=== PATIENT | male | born 1930 | race Caucasian/White ===

== ENCOUNTER 2016-11-30 21:25 | Inpatient (IN) | payer MEDICARE, OTHER ==
[~2016-11-30] VITALS: Ht 177.8 cm; Wt 95.3 kg
[~2016-11-30 21:25] MED LIST: ACETAMINOPHEN325 MG PO; ANUSOL-HC 2.5%30 GM TOPICAL; ASCORBIC ACID500 MG PO; ASPIRIN325 MG PO; CALCIUM 600+D T1 TA1 PO; COMBIVENT INH14.7 GM INH; COMBIVENT RESPIM4 GM INH; EC-NAPROSYN500 MG PO; FERROUS SULFAT325 MG PO; FLOVENT HFA 22012 GM INH; GLIMEPIRIDE1 MG PO; GLUCOTROL ER2.5 MG PO; HYDROCODONE-APA1 TAB PO; KEFLEX500 MG PO; KLOR-CON 1010 MEQ PO; LEVAQUIN500 MG PO; LEVAQUIN750 MG PO; LEVOTHROID100 MCG PO; LEVOXYL50 MCG PO; LIPITOR20 MG PO; NEURONTIN 300300 MG PO; NORCO 10/325 TA1 TA1 PO; NORVASC5 MG PO; OYSCO 500+D TAB1 TAB PO; PENTOXIL400 MG PO; PLAVIX75 MG PO; PREDNISONE10 MG PO; PREVACID30 MG PO; PROTONIX40 MG PO; PROVENTIL/2.5 MG/3 M INH; PYRIDOXINE HCL100 MG PO; SINGULAIR10 MG PO; STERAPRED DS 1210 MG PO; TYLENOL W/CODEI1 TAB PO; ULTRAM50 MG PO; VITAMIN B-121000 MC3 PO
[2016-11-30 22:04] LABS: BASOPHILS 0.1 % (0-2); EOSINOPHILS 0.5 % (0-7); HEMATOCRIT 47.6 % (42.0-54.0); HEMOGLOBIN 15.5 g/dL (13.5-17.5); IMMATURE GRANULOCYTES 0.1 % (0-5); LYMPHOCYTES 12.1 % (15-50); MCH 31.3 pg (26.0-34.0); MCHC 32.6 g/dL (31.0-37.0); MEAN PLATELET VOLUME 11.1 fL (7.4-10.4); MONOCYTES 8.4 % (2-11); NEUTROPHILS 78.8 % (40-80); PLATELET COUNT 127 10x3/uL (130-400); RBC 4.96 10x6/uL (4.20-6.10); RDW 13.9 % (11.5-14.5); WBC 8.2 10x3/uL (4.8-10.8)
[2016-11-30 22:25] LABS: ANION GAP 9.7 mmol/L (8-16); BILIRUBIN - TOTAL 1.8 mg/dL (0.2-1.3); CALCIUM 8.9 mg/dL (8.5-10.1); CARBON DIOXIDE 27.8 mmol/L (21.0-32.0); POTASSIUM - SERUM 4.5 mmol/L (3.5-5.1); PROTEIN - SERUM 7.7 g/dL (6.4-8.2)
[2016-12-01 00:16] LABS: APPEARANCE CLEAR (CLEAR); BILIRUBIN NEGATIVE (NEGATIVE); COLOR DK YELLOW (YELLOW); GLUCOSE NEGATIVE (NEGATIVE); KETONE NEGATIVE (NEGATIVE); LEUKOCYTE ESTERASE TRACE (NEGATIVE); NITRITE NEGATIVE (NEGATIVE); PROTEIN TRACE mg/dL (NEGATIVE); UROBILINOGEN NORMAL (NORMAL)
[2016-12-01 00:17] LABS: BACTERIA MODERATE /hpf (NONE SEEN); EPITHELIAL CELLS 0-5 /hpf (0-5); RED CELLS - URINE 0-5 /hpf (0-5); WHITE CELLS - URINE 0-5 /hpf (0-5)
[2016-12-01 00:18] LABS: MUCUS <1+ /lpf (NONE SEEN)
[2016-12-01 05:29] VITALS: BP 119/64; BMI 30.1
--- NOTE | 2016-12-01 08:00 | NUR ---
PATIENT IS RESTING QUIETLY WITH EYES CLOSED. HE RESPIRATIONS ARE DEEP AND EVEN, NO SIGNS OF DISTRESS.
[2016-12-01 08:08] VITALS: BP 131/63
[2016-12-01 12:00] VITALS: BP 109/56
--- NOTE | 2016-12-01 12:33 | NUR ---
PATIENT SITTING UP IN BED EATING HIS LUNCH. DENIES NEEDS.
[2016-12-01 12:51] VITALS: Ht 177.8 cm; Wt 95.3 kg
[2016-12-01 16:32] VITALS: BP 103/51
[2016-12-01 20:00] VITALS: BP 99/53
--- NOTE | 2016-12-01 20:53 | NUR ---
REC'D.IN BED SUSAN MAT IN PLACE AND ON.RESP. DEEP AND EVEN CRACLKES AUDIBLE UPPER CHEST BILIT. ENCOURAGED DEEP BREATHING EXERCISES AT INTERVAL. ALERT BUT CONFUSED TO SITUATION. WILL CONTINUE TO MONITOR FOR ANY CHGES IN RESP. STATUS AND FOLLOW CURRENT PLAN OF CARE.
[2016-12-02] VITALS: BP 126/57
--- NOTE | 2016-12-02 00:34 | NUR ---
EYES CLOSED RESPIRATIONS WITH EASE AND UNLABORED.
[2016-12-02 04:00] VITALS: BP 151/76
[2016-12-02 05:09] LABS: BASOPHILS 0 % (0-2); EOSINOPHILS 0 % (0-7); HEMATOCRIT 49.8 % (42.0-54.0); HEMOGLOBIN 16.1 g/dL (13.5-17.5); IMMATURE GRANULOCYTES 0.1 % (0-5); LYMPHOCYTES 7.5 % (15-50); MCH 30.8 pg (26.0-34.0); MCHC 32.3 g/dL (31.0-37.0); MCV 95.2 fL (80.0-100.0); MEAN PLATELET VOLUME 10.9 fL (7.4-10.4); NEUTROPHILS 86.4 % (40-80); PLATELET COUNT 122 10x3/uL (130-400); RBC 5.23 10x6/uL (4.20-6.10); RDW 13.7 % (11.5-14.5)
[2016-12-02 05:12] LABS: WBC 14.3 10x3/uL (4.8-10.8)
[2016-12-02 06:12] LABS: HEMOGLOBIN A1C 6.1 % (4.8-6.0)
[2016-12-02 06:37] LABS: ALBUMIN 2.9 g/dL (3.4-5.0); ANION GAP 16.4 mmol/L (8-16); BILIRUBIN - TOTAL 0.62 mg/dL (0.2-1.3); CALCIUM 8.9 mg/dL (8.5-10.1); CREATININE - SERUM 2.5 mg/dL (0.6-1.3); MAGNESIUM - SERUM 2.1 mg/dL (1.8-2.4); PHOSPHOROUS 4.1 mg/dL (2.5-4.9); POTASSIUM - SERUM 4.4 mmol/L (3.5-5.1); PROTEIN - SERUM 7.7 g/dL (6.4-8.2); T4 THYROXIN - FREE 1.01 ng/dL (0.76-1.46); THYROID STIMULATING HORMONE 0.71 uIU/mL (0.36-3.74)
[2016-12-02 08:01] VITALS: BP 151/67
--- NOTE | 2016-12-02 08:19 | NUR ---
SCHEDULED MEDICATIONS ADMINISTERED AT THIS TIME. ASSESSMENT PERFORMED PER FLOWSHEET. SHARP PATENT AND DRAINING TO GRAVITY. TELEMETRY APPLIED. IV TO RIGHT HAND PATENT. CALL LIGHT IN REACH, WILL CONTINUE WITH PLAN OF CARE. SUSAN MAT ALARM ON AND IN WORKING ORDER.
--- NOTE | 2016-12-02 10:30 | NUR ---
BEING SHAVED BY SHANNAN CHAUHAN. DENIES NEEDS. CALL LIGHT IN REACH, WILL CONTINUE WITH PLAN OF CARE.
[2016-12-02 11:54] VITALS: BP 106/58
--- NOTE | 2016-12-02 13:03 | NUR ---
Patient Name: ANJEL CAIN Admission Status: ER Accout number: [id number] Admission Date: 12-01-2016 : 1932 Admission Diagnosis:HEART FAILURE, UNSPECIFIED Attending: SERA Current LOS: 1 Anticipated DC Date: Planned Disposition: Home Primary Insurance: MEDICARE A & B Discharge Planning Comments: CM met with patient and spoke with his (Nguyen) to assess discharge planning needs. Patient currently lives at home with his and is partial dependent. Patient states that either his or son will take him home at time of discharge. states that she and her daughter help him with his bathing, toileting, and ambulation. states that if he needs PT or Home Health she would like to use [facility]. Patient has a home O2, shower chair, walker & wheelchair at home. CM will continue to follow and assist with discharge planning needs. PCP: Richard Pharmacy: [facility] : Nguyen [phone] Son: [phone] home o2: [place] Care Process Architect: Danitza Gomez * Is the patient Alert and Oriented? Yes 0 * PCP [facility] 0 * Pharm[facility] 0 * Preadmission Environment Home with Family 0 * ADLs Partial Dependent 0 * Partial ADLs (Assistance needed) Ambulation Bathing 0 * Equipment Oxygen Rolling Walker Shower Chair 0 * List name and contact numbers for known caregivers / representatives who currently or will assist patient after discharge: Nguyen () [phone] Mir (son) [phone] * Community resources currently utilized None 0 * Additional services required to return to the preadmission environment? Yes 0 * Can the patient safely return to the preadmission environment? Yes 0 * Has this patient been hospitalized within the prior 30 days at any hospital? No 0 Grand Total: 0
[2016-12-02 16:30] VITALS: BP 120/56
[2016-12-02 19:00] VITALS: BP 97/54
--- NOTE | 2016-12-02 21:51 | NUR ---
REC'D SITTING UP IN BED. ALERT AND ORIENTED X4. DENIED PAIN AT THIS TIME. DENIED FURTHER NEEDS AT THIS TIME. INSTRUCTED TO CALL IF NEEDED ANYTHING. VERBALIZED UNDERSTANDING. NO DISTRESS NOTED. WILL ADMIN PM/AM MEDS PRESCRIBED. BED LOW, LOCKED, CALL LIGHT IN REACH, ALARM ON.
[2016-12-03 04:00] VITALS: BP 140/70
[2016-12-03 05:13] LABS: BASOPHILS 0 % (0-2); EOSINOPHILS 0 % (0-7); HEMATOCRIT 44.3 % (42.0-54.0); HEMOGLOBIN 14.6 g/dL (13.5-17.5); IMMATURE GRANULOCYTES 0.2 % (0-5); LYMPHOCYTES 4.9 % (15-50); MCH 31.1 pg (26.0-34.0); MCV 94.5 fL (80.0-100.0); MEAN PLATELET VOLUME 11.6 fL (7.4-10.4); MONOCYTES 2.3 % (2-11); NEUTROPHILS 92.6 % (40-80); PLATELET COUNT 144 10x3/uL (130-400); RBC 4.69 10x6/uL (4.20-6.10); RDW 13.9 % (11.5-14.5); WBC 10.5 10x3/uL (4.8-10.8)
[2016-12-03 05:28] LABS: ALBUMIN 2.7 g/dL (3.4-5.0); ANION GAP 16.5 mmol/L (8-16); BILIRUBIN - TOTAL 0.51 mg/dL (0.2-1.3); CARBON DIOXIDE 25.7 mmol/L (21.0-32.0); CREATININE - SERUM 2.5 mg/dL (0.6-1.3); MAGNESIUM - SERUM 2.2 mg/dL (1.8-2.4); PHOSPHOROUS 3.4 mg/dL (2.5-4.9); POTASSIUM - SERUM 4.2 mmol/L (3.5-5.1); PROTEIN - SERUM 7.2 g/dL (6.4-8.2)
--- NOTE | 2016-12-03 05:50 | NUR ---
RESTING QUIETLY RESPIRATIONS WITH EASE AND UNLABORED.
[2016-12-03 07:52] VITALS: BP 140/67
--- NOTE | 2016-12-03 08:13 | NUR ---
SCHEDULED MEDICATIONS ADMINISTERED AT THIS TIME WELL PRN TYLENOL #3 FOR HEADACHE AT THIS TIME. ASSESSMENT PERFORMED PER FLOWSHEET. SHARP PATENT AND DRAINING TO GRAVITY. SUSAN MAT ALARM ON AND IN USE. CALL LIGHT IN REACH, WILL CONTINUE WITH PLAN OF CARE.
[2016-12-03 12:23] VITALS: BP 134/66
--- NOTE | 2016-12-03 13:01 | NUR ---
NUTRITION MONITORING & EVAL CHART REVIEWED. PT VISIT. TOLERATING ADA DIET, ENSURE. WILL CONTINUE TO PROVIDE DIET, ENSURE. MONITOR PO INTAKE. RD FOLLOWING
--- NOTE | 2016-12-03 15:54 | NUR ---
CM REASSESSMENT NOTE: PATIENTS DAUGHTER (FATUMA) CALLED CM AND STATED HER FATHER NEEDS HOME HEALTH WITH PHYSICAL THERAPY AND LE WAS SIGNED BY PATIENTS FOR [facility]. DAUGHTER HAS ALSO REQUESTED A HOSPITAL BED AND A GAIT BELT AT DISCHARGE. WILL DISCUSS THIS REQUEST WITH DR. CORNEJO. FATUMA (DAUGHTER) [phone]
[2016-12-03 16:33] VITALS: BP 134/62
[2016-12-03 20:00] VITALS: BP 114/59
[2016-12-04] VITALS: BP 132/57
--- NOTE | 2016-12-04 01:39 | NUR ---
PT SLEEPING. ASSESSMENT COMPLETE PER FLOW-SHEET. GAVE PAIN MED FOR HEADACHE. NO DISTRESS NOTED. WILL CONTINUE TO MONITOR.
[2016-12-04 04:00] VITALS: BP 141/66
[2016-12-04 05:04] LABS: BASOPHILS 0 % (0-2); EOSINOPHILS 0 % (0-7); HEMATOCRIT 44.3 % (42.0-54.0); HEMOGLOBIN 14.5 g/dL (13.5-17.5); IMMATURE GRANULOCYTES 0.4 % (0-5); LYMPHOCYTES 5.5 % (15-50); MCH 30.7 pg (26.0-34.0); MCHC 32.7 g/dL (31.0-37.0); MCV 93.9 fL (80.0-100.0); MEAN PLATELET VOLUME 11.2 fL (7.4-10.4); MONOCYTES 2.5 % (2-11); NEUTROPHILS 91.6 % (40-80); PLATELET COUNT 141 10x3/uL (130-400); RBC 4.72 10x6/uL (4.20-6.10); RDW 13.9 % (11.5-14.5); WBC 9.5 10x3/uL (4.8-10.8)
[2016-12-04 05:33] LABS: ALBUMIN 2.7 g/dL (3.4-5.0); ANION GAP 14.9 mmol/L (8-16); BILIRUBIN - TOTAL 0.46 mg/dL (0.2-1.3); CALCIUM 9.1 mg/dL (8.5-10.1); CARBON DIOXIDE 26.7 mmol/L (21.0-32.0); CREATININE - SERUM 2.4 mg/dL (0.6-1.3); POTASSIUM - SERUM 4.6 mmol/L (3.5-5.1); PROTEIN - SERUM 7.1 g/dL (6.4-8.2)
[2016-12-04 08:16] VITALS: BP 147/72
--- NOTE | 2016-12-04 09:24 | NUR ---
SHARP CATHETER D/C WITH CATH TIP INTACT PER ORDER. PT TOLERATED WITH MINIMAL COMPLAINTS OF PAIN.
--- NOTE | 2016-12-04 11:49 | NUR ---
Rehab Note- Acute Rehab Prescreen order received. Visited with the patient. He is going to think about coming to [facility]. Spoke with TYRESE Merchant. Will follow the patient at this time. Thank you for this referral! Kimberlyn Cooper RN Clinical Liaison, [facility] Rehab
[2016-12-04 12:45] VITALS: BP 107/67
[2016-12-04 15:38] VITALS: BP 114/63
--- NOTE | 2016-12-04 19:37 | NUR ---
ALERT & ORIENTED, DENIES NEEDS, BED LOWEST POSITION, CALL LIGHT IN REACH, WILL CONTINUE TO MONITOR
[2016-12-04 20:00] VITALS: BP 130/55
--- NOTE | 2016-12-04 20:00 | NUR ---
ASSESSED, RESTING QUIET IN BED WITH O2 AT 2 LITERS. NO RESPIRATORY PROBLEMS NOTED. BED ALARM IN PLACE. THE BED IS LOW, RAILS UP X'S 2 WITH THE CALL LIGHT AT HAND.
--- NOTE | 2016-12-04 22:30 | NUR ---
ASSESSED, PT IS AWAKE WITH TV ON BUT NOT REALLY WATCHING IT. TALKING WITH STAFF ABOUT HIS NEEDS. BED IS LOW, RAILS UP X'S 2 WITH THE CALL LIGHT AT HAND.
[2016-12-05] VITALS: BP 115/62
--- NOTE | 2016-12-05 03:47 | NUR ---
SLEEPING, BREATHING EVEN UNLABORED, CALL LIGHT IN REACH, WILL CONTINUE TO MONITOR
[2016-12-05 04:00] VITALS: BP 128/45
[2016-12-05 05:52] LABS: BASOPHILS 0.2 % (0-2); EOSINOPHILS 0 % (0-7); HEMATOCRIT 41.2 % (42.0-54.0); HEMOGLOBIN 13.6 g/dL (13.5-17.5); IMMATURE GRANULOCYTES 0.6 % (0-5); LYMPHOCYTES 8.9 % (15-50); MCH 31.1 pg (26.0-34.0); MCV 94.1 fL (80.0-100.0); MEAN PLATELET VOLUME 11.3 fL (7.4-10.4); MONOCYTES 6.9 % (2-11); NEUTROPHILS 83.4 % (40-80); PLATELET COUNT 138 10x3/uL (130-400); RBC 4.38 10x6/uL (4.20-6.10); WBC 10.6 10x3/uL (4.8-10.8)
[2016-12-05 06:22] LABS: ANION GAP 13.8 mmol/L (8-16); CARBON DIOXIDE 26.7 mmol/L (21.0-32.0); CREATININE - SERUM 2.2 mg/dL (0.6-1.3); POTASSIUM - SERUM 4.5 mmol/L (3.5-5.1)
[2016-12-05 08:23] VITALS: BP 122/64
--- NOTE | 2016-12-05 09:15 | NUR ---
ASSESSMENT COMPLETE. SL TO R HAND. REDNESS NOTED TO BUTTOCKS. SUSAN MAT IN USE. O2 2L NC IN USE. BUSINESS DEVELOPMENT OFFICER SHOWING ST 112 PER TECH. DARK AREA NOTED TO L HEEL.
--- NOTE | 2016-12-05 12:00 | NUR ---
NO CHANGES NOTED AT PRESENT. SUSAN MAT IN USE.
[2016-12-05 12:01] VITALS: BP 120/62
--- NOTE | 2016-12-05 17:54 | NUR ---
RESTING QUIETLY IN BED.
--- NOTE | 2016-12-05 19:35 | NUR ---
AWAKE/ALERT. REQUESTED URINAL EMPTIED. ON 02 AT 2L/NC. RR 18 EVEN U/L. IV IN R HAND INTACT SL. DENIES PAIN. ON SUSAN MAT FOR FALL PRECAUTIONS. ORIENTED TO CALL LIGHT FOR ANY NEEDS.
[2016-12-05 20:00] VITALS: BP 107/68
--- NOTE | 2016-12-05 20:50 | NUR ---
ADMIN SCHED MEDS WITH SIPS OF WATER. REAL ESTATE CONSULTANT ASSISTED WITH REPOSITIONING HIM UP IN BED.
[2016-12-06] VITALS: BP 110/77
--- NOTE | 2016-12-06 01:11 | NUR ---
SITTING ON SIDE OF BED. REQUESTED URINAL EMPTIED. NO OTHER NEEDS VOICED.
[2016-12-06 04:00] VITALS: BP 114/69
--- NOTE | 2016-12-06 06:00 | NUR ---
DENIES PAIN OR ANY NEEDS. ADMIN SCHED MEDS.
--- NOTE | 2016-12-06 07:45 | NUR ---
ASSESSMENT COMPLETE. SL TO R HAND. SLEETMUTE. REDNESS NOTED TO BUTTOCKS. O2 2L NC IN USE. MASTER CHEF SHOWING SR 95 PER TECH. DARK AREA NOTED TO L HEEL. SCABBED AREAS NOTED TO BLE.
[2016-12-06 08:24] VITALS: BP 135/66
--- NOTE | 2016-12-06 09:34 | NUR ---
PAIN PILL WITH AM MEDS PER PATIENT REQUEST. STATES HE DOES NOT WANT TYLENOL. REPOSITIONED FOR COMFORT. SUSAN MAT ALARM ON. CALL LIGHT IN REACH. WILL CONTINUE WITH PLAN OF CARE.
--- NOTE | 2016-12-06 10:40 | NUR ---
REPOSITIONED FOR COMFORT. SUSAN MAT ALARM ON. CALL LIGHT IN REACH.
--- NOTE | 2016-12-06 12:40 | NUR ---
EATING LUNCH AT THIS TIME. NO NEEDS VOICED AT THIS TIME.
[2016-12-06 12:57] VITALS: BP 120/60
--- NOTE | 2016-12-06 14:52 | NUR ---
GABAPENTIN 600 MG PO PER BIRD SALVADOR.
[2016-12-06 15:58] VITALS: BP 126/72; BP 152/73
--- NOTE | 2016-12-06 16:00 | NUR ---
BED BATH GIVEN PER WARBLE SAW OPERATOR. CALL LIGHT IN REACH.
--- NOTE | 2016-12-06 18:23 | NUR ---
NO CHANGES NOTED AT PRESENT.
[2016-12-06 20:00] VITALS: BP 141/70
--- NOTE | 2016-12-06 21:24 | NUR ---
REC'D LYING IN BED. ALERT AND ORIENTED X4. STATED " I HAVE A HEADACHE, CAN I GET SOMETHING FOR THE PAIN" WILL ADMIN PM/AM MEDS PRESCRIBED. NO DISTRESS NOTED. INSTRUCTED TO CALL IF NEEDED ANYTHING. VERBALIZED UNDERSTANDING. BED LOW, LOCKED, CALL LIGHT IN REACH, ALARM ON. WILL CONT TO MONITOR.
[2016-12-07] VITALS: BP 131/57
--- NOTE | 2016-12-07 03:30 | NUR ---
RESTING COMFORTABLY IN BED. NO DISTRESS NOTED. WILL CONT TO MONITOR. BED LOW, LOCKED, CALL LIGHT IN REACH, ALARM ON.
--- NOTE | 2016-12-07 03:53 | NUR ---
EYES CLOSED RESPIRATIONS WITH EASE AND UNLABORED.
[2016-12-07 04:00] VITALS: BP 133/53
[2016-12-07] MEDS ORDERED: LOVENOX30 MG/0.3 SC (07:02)
[2016-12-07] MEDS ORDERED: BROVANA15 MCG/2 M INH (07:02)
[2016-12-07] MEDS ORDERED: PENTOXIFYLLINE400 MG PO (07:02)
[2016-12-07] MEDS ORDERED: LEVAQUIN750 MG PO (07:02)
[2016-12-07] MEDS ORDERED: FLORASTOR250 MG PO (07:03)
[2016-12-07] MEDS ORDERED: PULMICORT0.5 MG/21 UPD (07:03)
[2016-12-07] MEDS ORDERED: MUCINEX600 MG PO (07:03)
[2016-12-07] MEDS ORDERED: STERAPRED DS 1210 MG PO (07:05)
--- NOTE | 2016-12-07 07:35 | NUR ---
ASSESSMENT COMPLETE. SL TO R HAND. REDNESS TO BUTTOCKS. DARK AREA NOTED TO L HEEL. O2 2L NC IN USE. SUSAN MAT IN USE. DENIES ANY NEEDS AT PRESENT.
[2016-12-07 08:09] VITALS: BP 146/81
--- NOTE | 2016-12-07 09:37 | NUR ---
TYRESE spoke with Nguyen fajardo and explained to her that the patient had orders to go to inpatient rehab, she stated that she would be up later to bring him clothes. I also spoke with the patient about going to rehab and he stated "let's get this show on the road". Kimberlyn PANG notified about discharge and orders for rehab. CM will continue to follow and assist.
[2016-12-07 12:10] VITALS: BP 141/55
--- NOTE | 2016-12-07 12:29 | NUR ---
REPORT CALLED TO REHAB. WILL TRANSFER TO 3474B AFTER FINISHED EATING LUNCH.
--- NOTE | 2016-12-07 13:50 | NUR ---
DC'D TO ROOM 1114B VIA WITH BELONGINGS. PATIENT STATES HE NOTIFIED FAMILY OF HIS TRANSFER DOWNSTAIRS.
--- NOTE | 2016-12-07 13:53 | NUR ---
Patient discharged to in patient rehab to room 1114B.
== END 2016-12-07 13:50 | DRG 189 ==
LOC: D.ER 21:25 → D.MS 12-01 01:10 → OBSVTIME 12-01 01:10 → D.MS 12-01 16:46
PROVIDERS: Emergency Medicine; Physician Assistant Medical; ADMIT Family Medicine
DX: J96.01 Acute respiratory failure with hypoxia (principal); J18.9 Pneumonia, unspecified organism; J44.0 Chronic obstructive pulmonary disease with (acute) lower respiratory infection; I13.0 Hypertensive heart and chronic kidney disease with heart failure and stage 1 through stage 4 chronic kidney disease, or unspecified chronic kidney disease; I50.32 Chronic diastolic (congestive) heart failure; J44.1 Chronic obstructive pulmonary disease with (acute) exacerbation; J20.9 Acute bronchitis, unspecified; J45.909 Unspecified asthma, uncomplicated; R53.1 Weakness; E11.9 Type 2 diabetes mellitus without complications; E11.22 Type 2 diabetes mellitus with diabetic chronic kidney disease; N18.9 Chronic kidney disease, unspecified; F17.290 Nicotine dependence, other tobacco product, uncomplicated

== ENCOUNTER 2016-12-07 12:51 | Inpatient (IN) | payer MEDICARE, OTHER ==
[~2016-12-07] VITALS: Ht 177.8 cm; Wt 90.7 kg
[~2016-12-07 12:51] MED LIST changes: +BROVANA15 MCG/2 M INH; +FLORASTOR250 MG PO; +LOVENOX30 MG/0.3 SC; +MUCINEX600 MG PO; +PENTOXIFYLLINE400 MG PO; +PULMICORT0.5 MG/21 UPD
[2016-12-07 14:52] VITALS: BP 130/72; BMI 28.7
--- NOTE | 2016-12-07 17:47 | NUR ---
PT RESTING IN WHEELCHAIR AT BEDSIDE CALL LIGHT IN REACH WILL MONITER
--- NOTE | 2016-12-07 20:10 | NUR ---
EMPTY 400CC URINE FROM URINAL.
[2016-12-07 21:20] VITALS: BP 157/80
--- NOTE | 2016-12-08 01:59 | NUR ---
AWAKE AND ERP MANAGER LIGHT SEVERAL TIMES IN THE LAST HOUR. REQUESTING DIABETIC ICE CREAM. SUGAR FREE POPCICLE GIVEN AND ACCEPTED. ASSISTED TO TOILET. LEAKED URINE WHEN AMBULATING TO TOILET. PERICARE GIVEN.
--- NOTE | 2016-12-08 04:50 | NUR ---
RESTING IN BED WITH EYES CLOSED. NO S/S OF DISTRESS OBSERVED. CALL LIGHT AND OVERBED TABLE IN REACH.
[2016-12-08 06:37] LABS: BASOPHILS 0.1 % (0-2); EOSINOPHILS 0 % (0-7); HEMATOCRIT 42.3 % (42.0-54.0); HEMOGLOBIN 14.1 g/dL (13.5-17.5); IMMATURE GRANULOCYTES 1.5 % (0-5); LYMPHOCYTES 7.7 % (15-50); MCH 30.9 pg (26.0-34.0); MCHC 33.3 g/dL (31.0-37.0); MCV 92.6 fL (80.0-100.0); MEAN PLATELET VOLUME 11.6 fL (7.4-10.4); MONOCYTES 5.7 % (2-11); PLATELET COUNT 157 10x3/uL (130-400); RBC 4.57 10x6/uL (4.20-6.10); RDW 13.2 % (11.5-14.5); WBC 10.6 10x3/uL (4.8-10.8)
[2016-12-08 06:56] LABS: ANION GAP 12.6 mmol/L (8-16); CALCIUM 8.6 mg/dL (8.5-10.1); CARBON DIOXIDE 28.9 mmol/L (21.0-32.0); CREATININE - SERUM 1.6 mg/dL (0.6-1.3); POTASSIUM - SERUM 5.5 mmol/L (3.5-5.1)
[2016-12-08 09:50] VITALS: Ht 177.8 cm; Wt 90.7 kg
--- NOTE | 2016-12-08 12:10 | NUR ---
PATIENT ADMITTED TO REHAB FROM ACUTE FLOOR. DISCHARGE PLANS ARE FOR PATIENT TO RETURN HOME WITH SPOUSE. DR. CORNEJO IS PCP. [facility] IS PATIENT CHOICE. DME AT HOME WALKER, WHEELCHAIR, SHOWER CHAIR AND O2 ([facility]). AT DISCHARGE FAMILY REQUEST [facility]. WILL CONTINUE TO FOLLOW WITH PATIENT.
--- NOTE | 2016-12-08 14:35 | NUR ---
PT RESTING IN BED WITH EYES OPEN CALL LIGHT IN REACH NO PROBLEMS WILL MONITER
--- NOTE | 2016-12-08 18:32 | NUR ---
RESTING QUIETLY IN BED. NO S/S DISTRESS. CALL LIGHT IN REACH
--- NOTE | 2016-12-08 19:35 | NUR ---
PT. SITTING UP IN W/C WATCHING TV. PT. ASKING QUESTIONS TO WHY HIS LIQUIDS ARE NECTAR THICK AND NOT REGULAR. PT. ADMITS TO HAVING A SWALLOWING PROBLEM. EXPLAINED TO PT. ABOUT TOMORROW'S STAFFING MEETING WITH PTS. AND HE AND HIS NEED TO ATTEND TO GET QUESTIONS ANSWERED. ASSESSMENT COMPLETED. NO VOICED NEEDS AT THIS TIME AND HIS CALL LIGHT IS WITHIN REACH.
[2016-12-08 21:15] VITALS: BP 104/71
--- NOTE | 2016-12-08 23:18 | NUR ---
PT. IN BED WITH HOB UP FOR COMFORT WITH EYES CLOSED AND RESP. EVEN. O2 ON VIA N/C AT 2L/MIN WITHOUT ANY S/S DISTRESS OBSERVED. CALL LIGHT WITHIN REACH.
--- NOTE | 2016-12-09 03:12 | NUR ---
PT. IN BED LYING ON HIS LEFT SIDE WITH EYES CLOSED AND RESP. EVEN. O2 ON VIA N/C AT 2L/MIN WITHOUT ANY S/S DISTRESS OBSERVED. CALL LIGHT WITHIN REACH.
[2016-12-09 07:39] LABS: BASOPHILS 0.2 % (0-2); EOSINOPHILS 0 % (0-7); HEMATOCRIT 42.9 % (42.0-54.0); HEMOGLOBIN 14.3 g/dL (13.5-17.5); IMMATURE GRANULOCYTES 1.9 % (0-5); LYMPHOCYTES 8.2 % (15-50); MCH 30.8 pg (26.0-34.0); MCHC 33.3 g/dL (31.0-37.0); MCV 92.3 fL (80.0-100.0); MEAN PLATELET VOLUME 11.4 fL (7.4-10.4); MONOCYTES 5.4 % (2-11); NEUTROPHILS 84.3 % (40-80); PLATELET COUNT 180 10x3/uL (130-400); RBC 4.65 10x6/uL (4.20-6.10); RDW 13.2 % (11.5-14.5); WBC 10.2 10x3/uL (4.8-10.8)
[2016-12-09 07:54] LABS: ANION GAP 12.7 mmol/L (8-16); CALCIUM 8.4 mg/dL (8.5-10.1); CARBON DIOXIDE 28.4 mmol/L (21.0-32.0); CREATININE - SERUM 1.7 mg/dL (0.6-1.3); POTASSIUM - SERUM 5.1 mmol/L (3.5-5.1)
[2016-12-09 08:55] VITALS: BP 146/65
--- NOTE | 2016-12-09 10:00 | NUR ---
PATIENT IN REHAB ROOM. WORKING WITH OCCUPATIONAL THERAPIST. VOICES NO PAIN/DISC AT THIS TIME
--- NOTE | 2016-12-09 12:26 | NUR ---
PATIENT IS ALERT/ WITH SOME CONFUSION. CALL LIGHT WITHIN REACH. OXYGEN ON AT 2L PER N/C. TELEMETRY INTACT. VOICES NO NEEDS AT THIS TIME.
--- NOTE | 2016-12-09 12:30 | NUR ---
PATIENTS IN ROOM. REQUESTED TO GO TO CARE PLAN MEETING. ZANA AWARE OF.
--- NOTE | 2016-12-09 14:42 | NUR ---
SPEECH THERAPIST IN ROOM WORKING WITH PATIENT.
--- NOTE | 2016-12-09 15:01 | NUR ---
CARE TEAM MEETING: PATIENT ATTENDED MEETING. DISCUSSED PATIENT QUESTIONS AND CONCERNS. TENATIVE DISCHARGE DATE IS 12/18/16. WILL CONTINUE TO FOLLOW WITH PATIENT AND WILL ASSIT PATIENT TO DISCHARGE HOME.
--- NOTE | 2016-12-09 17:42 | NUR ---
RESTING QUIETLY.CL IN REACH.
--- NOTE | 2016-12-09 19:30 | NUR ---
PT RESTING QUIETLY WITH EYES CLOSED, RESPIRATIONS REGULAR AND UNLABORED.
[2016-12-09 20:11] VITALS: BP 134/66
--- NOTE | 2016-12-10 01:00 | NUR ---
PT RESTING QUIETLY, NO S/S OF ACUTE DISTRESS.
--- NOTE | 2016-12-10 03:00 | NUR ---
FOUND PT IN BATHROOM, PT INCONTINENT OF URINE, ASSISTED PT BACK TO BED AFTER TOILETING, ASSITED PT WITH DONNING BRIEFS. PT PREFERS BATHROOM DOOR CLOSED, AND ROOMMMATE PREFERS PT DOOR CLOSED.
--- NOTE | 2016-12-10 08:00 | NUR ---
DENIES NEEDS.CL IN REACH.
--- NOTE | 2016-12-10 08:00 | NUR ---
PT IS RESTING IN BED WITH EYES OPEN. SAT UP ON THE SIDE OF THE BED TO EAT BREAKFAST. FEEDING SELF WITHOUT DIFFICULTY. TELEMETRY IS ON AND INTACT. NO NEEDS VOICED AT THIS TIME. SR'S ARE UP X 3 WHILE IN BED. CALL LIGHT AND BEDSIDE TABLE ARE WITHIN EASY REACH.
[2016-12-10 08:46] VITALS: BP 142/61
--- NOTE | 2016-12-10 09:00 | NUR ---
PT IS IN RADIOLOGY DOING A SWALLOW STUDY AT THIS TIME.
--- NOTE | 2016-12-10 10:06 | NUR ---
PT IS IN THE SHOWER WITH THE GIANT TIRE REPAIRER.
--- NOTE | 2016-12-10 12:00 | NUR ---
PT RESTING IN BED AWAITING LUNCH. NO NEEDS VOICED.
--- NOTE | 2016-12-10 14:20 | NUR ---
PT IS RESTING QUIETLY IN BED WITH EYES CLOSED. RESPS ARE EVEN AND UNLABORED. NO ACUTE DISTRESS NOTED.
--- NOTE | 2016-12-10 14:59 | NUR ---
Nutrition Follow Up: Pt reported that his appetite is very good. He is eating 92% meal avg on a diabetic diet with nectar thick liquids. +BM 12/09/16. Wt stable. Labs reviewed - glucose continues elevated. Meds noted including Glipizide, Prednisone. Rec continue current diet. RD following.
--- NOTE | 2016-12-10 16:37 | NUR ---
PT IS RESTING QUIETLY IN BED WITH EYES CLOSED. NO ACUTE DISTRESS NOTED.
[2016-12-10 19:00] VITALS: BP 132/58
--- NOTE | 2016-12-10 19:15 | NUR ---
SITTING UP IN W/C AT BEDSIDE. NO COMPLAINTS AT THIS TIME.
--- NOTE | 2016-12-10 20:00 | NUR ---
CONTINUES UP IN W/C AT BEDSIDE.
--- NOTE | 2016-12-10 22:20 | NUR ---
ASSESSMENT AND HS MEDS COMPLETE. PATIENT QUITE IRRITABLE. VERY FOCUSED ON SELF HE KEPT TELLING ME TO DO THINGS FOR HIM WHEN HE COULD SEE I WAS TAKING CARE OF HIS ROOMMATE'S NEEDS, AND ASSESSING HIM JUST BEFORE I STARTED IN WITH MR. CAIN. CONTINUES UP IN W/C. DELCINES TO GO TO BED AT THIS TIME. REMIDED HIM TO CALL FOR ASSIST TO BR HIS SAFETY IS OUR PRIMARY CONCERN AND THE VERY REASON HE IS HERE FOR THERAPY.
--- NOTE | 2016-12-11 00:35 | NUR ---
JUST FINISHED TAKING PATIENT TO TO URINATE. USED CALL LIGHT EARLIER REQUESTED. AFTER ASSISTING HIM BACK INTO BED, PATIENT REQUESTED ICE CREAM SAYING HE WAS "A LITTLE DIABETIC AND I THINK MY SUGAR IS DROPPING." FSBS 182. I HAD EARLIER GIVEN PATIENT 8 OZS APPLE JUICE, AND HIS CURRENT ELEVATED BS IS THE RESULT. TOLD HIM THAT WITHOUT A SLIDING SCALE I COULD NOT GIVE HIM ICE CREAM OR OTHER SNACK THAT WOULD RAISE HIS BLOOD SUGAR HIGHER. PATIENT SAID, "WELL, GET OUT OF HERE THEN!" HAS BEEN IRRITABLE ALL EVENING WITH MYSELF AND JAVIER MARQUEZ REGARDING HIS ORDER FOR ALL LIQUIDS TO BE NECTAR THICK. TOLD HIM I INTENDED TO CONSULT WOUND CARE NURSE REGARDING THE DRY BLISTER ESCHAR TO HIS LEFT HEEL. PATIENT STATED, "I DON'T WANT ANYONE DOING ANYTHIN ABOUT IT. JUST LEAVE IT ALONE!"
--- NOTE | 2016-12-11 02:15 | NUR ---
RESTING QUIETLY IN BED, EYES CLOSED. NO EVIDENT DISTRESS.
--- NOTE | 2016-12-11 04:40 | NUR ---
RESTING QUIETLY IN BED AFTER HE WAS UP TO BR COMMODE LAST AROUND 0400 HRS. HAS BEEN LESS IRRITABLE AND MORE COOPERATIVE THROUGH THE NIGHT THAN EARLIER ON SHIFT.
--- NOTE | 2016-12-11 05:45 | NUR ---
RESTING IN BED, EYES CLOSED. NO APPARENT DISCOMFORT.
--- NOTE | 2016-12-11 07:17 | NUR ---
LYING IN BED ON RIGHT SIDE C/O OF ROOMMATE AND HIS TV BEING ON ALREADY THIS MORNING TV IS DOWN LOW. PT CONTINUES ON O2 @ 2L. ALERT AND ORIENTED TO PLACE AND PERSON. CALL LIGHT IN REACH
[2016-12-11 07:27] LABS: BASOPHILS 0 % (0-2); EOSINOPHILS 0 % (0-7); HEMOGLOBIN 13.8 g/dL (13.5-17.5); IMMATURE GRANULOCYTES 0.8 % (0-5); LYMPHOCYTES 7.9 % (15-50); MCH 30.5 pg (26.0-34.0); MCHC 32.9 g/dL (31.0-37.0); MCV 92.7 fL (80.0-100.0); MEAN PLATELET VOLUME 11.1 fL (7.4-10.4); NEUTROPHILS 87.3 % (40-80); PLATELET COUNT 165 10x3/uL (130-400); RBC 4.53 10x6/uL (4.20-6.10); RDW 13.5 % (11.5-14.5); WBC 11.6 10x3/uL (4.8-10.8)
[2016-12-11 07:35] LABS: ANION GAP 11.5 mmol/L (8-16); CALCIUM 8.2 mg/dL (8.5-10.1); CARBON DIOXIDE 28.3 mmol/L (21.0-32.0); CREATININE - SERUM 1.7 mg/dL (0.6-1.3); POTASSIUM - SERUM 4.8 mmol/L (3.5-5.1)
[2016-12-11 08:00] VITALS: BP 124/57
--- NOTE | 2016-12-11 09:11 | NUR ---
IN GYM WITH OCCUPATIONAL THERAPY.
--- NOTE | 2016-12-11 11:08 | NUR ---
SITTING IN ROOM WATCHING TV. DENIES ANY PAIN. WILL CONTINUE TO MONITOR.
--- NOTE | 2016-12-11 15:28 | NUR ---
SITTING UP IN W/C WATCHING TV. CALL LIGHT IN REACH. DENIES ANY NEEDS. WILL CONTINUE TO MONITOR
--- NOTE | 2016-12-11 18:37 | NUR ---
SITTING UP IN WHEELCHAIR WATCHING TV DENIES ANY PAIN. CALL LIGHT IN REACH. WILL CONTINUE TO MONITOR
--- NOTE | 2016-12-11 20:10 | NUR ---
SIT UP IN WHEELCHAIR AND READ BOOKS.
[2016-12-12 00:23] VITALS: BP 131/60
--- NOTE | 2016-12-12 03:15 | NUR ---
RESTING IN BED, EYES CLOSED. NO DISTRESS NOTED.
--- NOTE | 2016-12-12 03:23 | NUR ---
REST QUIETLY IN BED, EYE CLOSE, BED LOW, CALL LIGHT WITHIN REACH.
--- NOTE | 2016-12-12 07:22 | NUR ---
RESTING QUIETLY IN BED. EYES CLOSED. CALL LIGHT IN REACH.
[2016-12-12 09:25] VITALS: BP 141/66
--- NOTE | 2016-12-12 12:02 | NUR ---
SITTING UP IN ROOM ON SIDE OF BED EATING LUNCH. DENIES NEEDS. IS CHEESH-NA AND NEEDS ASST WITH TRANSFERS. CALL LIGHT IN REACH
--- NOTE | 2016-12-12 16:50 | NUR ---
RESTING QUIELTY IN BED. EYES CLOSED. CALL LIGHT IN REACH
--- NOTE | 2016-12-12 19:56 | NUR ---
AWAKE AND UP ON THE SIDE OF THE BED ATTEMPTING TO TRANSFER SELF. WENT INTO ROOM AND ATTEMPTED TO REEDUCATE ON THE NEED FOR ASSISTANCE. BECAME ARGUMENATIVE. ASSISTED UP AND TO TOILET. POOR BALANCE AND GAIT UPON TRANSFER.
[2016-12-12 21:11] VITALS: BP 171/67
--- NOTE | 2016-12-12 23:17 | NUR ---
UP IN BED WITH EYES CLOSED. NO S/S OF DISTRESS OBSERVED. O2 AT 2 LITERS PER NASAL CANNULA IN PLACE. CALL LIGHT AND OVERBED TABLE IN REACH.
--- NOTE | 2016-12-13 04:25 | NUR ---
LYING IN BED WITH EYES CLOSED. NO S/S OF DISTRESS OBSERVED. O2 @ 2 LITERS PER NASAL CANNULA IN PLACE.
--- NOTE | 2016-12-13 07:04 | NUR ---
RESTING QUIETLY IN BED. NO S/S DISTRESS OR NEEDS. CALL LIGHT IN REACH.
--- NOTE | 2016-12-13 13:59 | NUR ---
PT RESTING IN BED WITH EYES OPEN CALL LIGHT IN REACH WILL MONITER
[2016-12-13 19:31] VITALS: BP 137/68
--- NOTE | 2016-12-13 19:50 | NUR ---
ASSISTED PT TO BATHROOM, PT STATE HE WOULDN'T TRANSFER FROM W/C TO TOILET WITH SOMEONE IN THE SHOWER. PT WAS RATHER CURSE WITH HIS VERBALIZATION. POTENTIALLY PT IS DRINKING WATER FROM [employer].
--- NOTE | 2016-12-14 01:28 | NUR ---
PT RESTING QUIETLY, RESPIRATIONS REGULAR AND UNLABORED, NO S/S OF ACUTE DISTRESS. RESPIRATIONS REGULAR AND UNLABORED. EYES CLOSED.
[2016-12-14 06:24] LABS: BASOPHILS 0 % (0-2); EOSINOPHILS 0.1 % (0-7); HEMATOCRIT 39.9 % (42.0-54.0); HEMOGLOBIN 12.9 g/dL (13.5-17.5); IMMATURE GRANULOCYTES 0.3 % (0-5); LYMPHOCYTES 8.7 % (15-50); MCH 30.1 pg (26.0-34.0); MCHC 32.3 g/dL (31.0-37.0); MCV 93.2 fL (80.0-100.0); MEAN PLATELET VOLUME 11.5 fL (7.4-10.4); MONOCYTES 4.6 % (2-11); NEUTROPHILS 86.3 % (40-80); PLATELET COUNT 149 10x3/uL (130-400); RBC 4.28 10x6/uL (4.20-6.10); RDW 13.8 % (11.5-14.5)
--- NOTE | 2016-12-14 06:31 | NUR ---
PT AWAKE WATCHING TV, PT OBSERVED DRINKING THIN LIQUID WATER, PT STATES HE DIDN'T SLEEP WELL DURING THE NIGHT ONLY A COUPLE OF HOURS. PT DENIES PAIN. PT CORY.
--- NOTE | 2016-12-14 06:34 | NUR ---
PT STATES HE WILL DRINK WATER HE LIKES TO DRINK IT.
[2016-12-14 06:39] LABS: ANION GAP 9.6 mmol/L (8-16); CALCIUM 8.1 mg/dL (8.5-10.1); CARBON DIOXIDE 27.9 mmol/L (21.0-32.0); CREATININE - SERUM 1.3 mg/dL (0.6-1.3); POTASSIUM - SERUM 5.5 mmol/L (3.5-5.1)
[2016-12-14 07:31] VITALS: BP 133/61
--- NOTE | 2016-12-14 07:56 | NUR ---
PT USED CALL LIGHT TO CALL NURSE TO HIS ROOM. HE WAS VERY ANGRY. HE STATED THAT EVERY DAY HIS COFFEE WAS FULL OF THICKENER, AND HE WAS NOT GOING TO DRINK THAT ----. HE WAS DEMANDING ANOTHER UNTHICKENED CUP. I INFORMED HIM, THAT HIS ORDERS WERE FOR NECTAR THICK LIQUIDS, AND I COULD NOT GIVE HIM UNTHICKED LIQUIDS. HE DEMANDED TO SEE MY FEED PREPARATION OPERATOR. I TOLD HIM I WOULD SEND HER DOWN SOON SHE GOT OUT OF HER AM MEETING.
--- NOTE | 2016-12-14 09:31 | NUR ---
PT RESTING IN BED AWAITING THERAPY. NO NEEDS VOICED.
--- NOTE | 2016-12-14 12:15 | NUR ---
PT IS FEEDING SELF LUNCH IN HIS ROOM. NO NEEDS VOICED.
--- NOTE | 2016-12-14 13:31 | NUR ---
PT SHOWERING WITH SORTER PACKER.
--- NOTE | 2016-12-14 14:20 | NUR ---
PT IN THERAPY, TOLERATING WELL. WCTM.
--- NOTE | 2016-12-14 17:39 | NUR ---
PT IS FEEDING SELF SUPPER IN HIS ROOM. NO DISTRESS NOTED.
[2016-12-14 18:48] VITALS: BP 156/66
--- NOTE | 2016-12-14 19:30 | NUR ---
PT IN BED WITH HOB UP FOR COMFORT. WATCHING TV. ALERT & ORIENTED. TELEMETRY. NO IV. 02 @ 2L VIA N/C. NECTAR THICK LIQUIDS. SUSAN ALARM. BED IN LOWEST POSITION AND CALL LIGHT WITHIN REACH.
--- NOTE | 2016-12-14 23:30 | NUR ---
PT IN BED WITH HOB UP FOR COMFORT. WATCHING TV. BED IN LOWEST POSITION AND CALL LIGHT WITHIN REACH.
--- NOTE | 2016-12-15 01:07 | NUR ---
PT IN DENIAL REGARDING IMPLICATIONS OF EATING/DRINKING THIN LIQUIDS. DIFFICULTY REASONING WITH PATIENT REGARDING REQUEST FOR ICE CREAM. PT IS ADAMANT THAT HE CAN EAT AND DRINK WHAT HE WANTS AND THAT ICE CREAM ISN'T A THIN LIQUID. PT OBSERVED OBTAINING WATER FROM [employer] TO DRINK.
--- NOTE | 2016-12-15 04:19 | NUR ---
PT LYING IN BED. EYES CLOSED. RESP. EVEN. CALL LIGHT IN REACH.
--- NOTE | 2016-12-15 07:32 | NUR ---
PT RESTING IN BED WITH EYES OPEN CALL LIGHT IN REACH WILL MONITER
[2016-12-15 07:40] VITALS: BP 136/82
--- NOTE | 2016-12-15 11:07 | NUR ---
PATIENT DISCHARGING HOME WITH FAMILY. [facility] WILL FOLLOW WITH PATIENT AT HOME. [facility] WILL DELIVER BED, TRAPEZE AND NEBULIZER. DR. CORNEJO 12/22/16 @ 2:30. PATIENT CHOICE FORM FOR HOME HEALTH AND [facility] FORM SIGNED, EXPLAINED AND FILED IN CHART. ORDERS HAVE BEEN FAXED WITH CONFORMATION RECIEVED
--- NOTE | 2016-12-15 12:42 | NUR ---
PT RESTING IN BED WITH EYES OPEN CALL LIGHT IN REACH NO PROBLEMS WILL MONITER
--- NOTE | 2016-12-15 12:53 | NUR ---
PT DISCHARGED TO HOME VIA WHEELCHAIR WITH SON DISCHARGE SUMMARY AND MEDS REVIEWED WITH PT ALL MEDS CALLED TO [facility] TOLERATED DISCHARGE WELL
== END 2016-12-15 12:54 | disposition home health service (06) | DRG 190 ==
LOC: D.REHAB 12:51
PROVIDERS: ADMIT Emergency Medicine
DX: J44.1 Chronic obstructive pulmonary disease with (acute) exacerbation (principal); J18.9 Pneumonia, unspecified organism; J96.01 Acute respiratory failure with hypoxia; I50.32 Chronic diastolic (congestive) heart failure; R53.1 Weakness; G89.29 Other chronic pain; Z91.81 History of falling; M17.9 Osteoarthritis of knee, unspecified; E11.65 Type 2 diabetes mellitus with hyperglycemia; F17.200 Nicotine dependence, unspecified, uncomplicated; N18.9 Chronic kidney disease, unspecified; E11.22 Type 2 diabetes mellitus with diabetic chronic kidney disease